=== PATIENT | female | born 1990 | race Caucasian/White ===

== ENCOUNTER 2019-05-07 08:13 | Emergency (ER) | payer MEDICAID ==
[~2019-05-07] VITALS: Ht 157.5 cm; Wt 70.3 kg
--- NOTE | 2019-05-07 08:20 | NUR ---
PT AMB TO RESTROOM WITH STEADY GAIT
[2019-05-07 08:22] VITALS: BP 175/60
--- NOTE | 2019-05-07 08:24 | NUR ---
PATIENT AMBULATED WITH STEADY GAIT TO BED 7.
--- NOTE | 2019-05-07 08:27 | NUR ---
PT C/O GENERALIZED ABDOMINAL PAIN WITH N/V/D THAT STARTED AFTER EATING YESTERDAY. PT GRIMACING AND GAURDING BEHAVIOR 01/05 PAIN. ABDOMEN NON-TENDER TO TOUCH. BOWEL SOUND ACTIVE IN ALL 4 QUADRANTS. ABDOMEN SOFT AND ROUND. VS STABLE. PT ALERT AND AWAKE. AMBULATORY. PMH- GASTRIC SLEEVE 2014
--- NOTE | 2019-05-07 08:39 | NUR ---
DR MTZ EVALUATING PT AT BEDSIDE
[2019-05-07] MEDS ORDERED: NACL 0.9% 1,000 ML IV ONE (08:42)
[2019-05-07] MEDS ORDERED: KETOROLAC 30 MG/ML VIAL IVP ONE (08:45)
[2019-05-07] MEDS ORDERED: ONDANSETRON 4 MG/2 ML VIAL IVP ONE (08:45)
--- NOTE | 2019-05-07 08:50 | NUR ---
IV INSERTED AND LABS DRAWN BEDSIDE
--- NOTE | 2019-05-07 08:52 | NUR ---
PT TO CT VIA CINDA
--- NOTE | 2019-05-07 08:59 | NUR ---
PT RETURNED FROM CT
[2019-05-07 09:04] LABS: BASOPHILS # (AUTO) 0.1 K/uL (0.00-0.22); BASOPHILS % (AUTO) 0.7 % (0.0-2.0); EOSINOPHILS # (AUTO) 0.2 K/uL (0-0.4); EOSINOPHILS % (AUTO) 1.1 % (0.0-4.0); HEMATOCRIT 45.1 % (36-48); HEMOGLOBIN 15.1 g/dL (12.0-16.0); LYMPHOCYTES % (AUTO) 7.1 % (20.5-51.1); MEAN CORPUSCULAR HEMOGLOBIN 32 pg (27-31); MEAN CORPUSCULAR HGB CONC 34 g/dL (33-37); MEAN CORPUSCULAR VOLUME 94.2 fL (80-94); MONOCYTES # (AUTO) 0.8 K/uL (0.8-1.0); MONOCYTES % (AUTO) 5.6 % (1.7-9.3); NEUTROPHILS # (AUTO) 11.6 K/uL (1.8-7.7); NEUTROPHILS % (AUTO) 85.5 % (42.2-75.2); PLATELET COUNT (AUTO) 308 K/uL (140-450); RED BLOOD CELL COUNT(AUTO) 4.79 MIL/uL (4.20-5.40); RED CELL DISTRIBUTION WIDTH 13.4 % (11.6-13.7); WHITE BLOOD COUNT (AUTO) 13.6 K/uL (4.8-10.8)
--- NOTE | 2019-05-07 09:14 | NUR ---
TORADOL AND ZOFRAN IVP ADMINISTERED, FLUIDS STARTED
[2019-05-07 09:25] LABS: ANION GAP 14.6 (8-16); CARBON DIOXIDE 22.9 mmol/L (21-32); POTASSIUM 3.5 mmol/L (3.5-5.1)
[2019-05-07 09:26] LABS: CREATININE 0.7 mg/dL (0.6-1.3)
[2019-05-07 09:31] LABS: ALBUMIN 3.6 g/dL (3.4-5.0); TOTAL BILIRUBIN 1.3 mg/dL (0.0-1.0)
--- NOTE | 2019-05-07 10:00 | NUR ---
PT STATES RELIEF FROM NAUSEA AND PAIN 07/06, NADR
[2019-05-07] MEDS ORDERED: MORPHINE SULFATE 2 MG/ML SYR IVP ONE (10:20)
--- NOTE | 2019-05-07 10:28 | NUR ---
PT REFUSED MORHPINE
[2019-05-07 10:29] VITALS: BP 133/63
--- NOTE | 2019-05-07 10:29 | NUR ---
Patient discharged with v/s stable. Written and verbal after care instructions given and explained REGARDING FOOD POISONING. Patient alert, oriented and verbalized understanding of instructions. Ambulatory with steady gait. All questions addressed prior to discharge. ID band removed. Patient advised to follow up with PMD. Rx of MOTRIN AND ZOFRAN given. Patient educated on indication of medication including possible reaction and side effects. Opportunity to ask questions provided and answered.
== END 2019-05-07 10:29 | disposition home or self-care (01) ==
LOC: MED 08:13
DX: A05.9 Bacterial foodborne intoxication, unspecified (principal); Z98.890 Other specified postprocedural states
CPT/HCPCS: 36415; 74176; 80053; 81002; 81025; 85025; 87040; 96361; 96374; 96375; 99284; J1885; J2405; J7030